=== PATIENT | female | born 1985 | race African-American/Black ===

== ENCOUNTER 2023-02-07 20:22 | Emergency (ER) | payer OTHER, SELFPAY ==
[2023-02-07] MEDS ORDERED: Ketorolac Tromethamine 30 MG/ML VIAL ONE (22:08)
== END 2023-02-07 22:35 | disposition home or self-care (01) ==
LOC: CSHERS 20:22
DX: K02.9 Dental caries, unspecified (principal); F17.210 Nicotine dependence, cigarettes, uncomplicated
CPT/HCPCS: 96372; 99282; J1885